=== PATIENT | female | born 2000 | race Caucasian/White ===

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

== ENCOUNTER 2018-11-23 11:36 | Emergency (ER) | payer OTHER ==
[~2018-11-23] VITALS: Ht 162.6 cm; Wt 47.0 kg
[2018-11-23 12:27] LABS: IMMATURE GRANULOCYTES 0.4 % (0.0-5.0); MEAN CELL VOLUME 88.6 fL CALC (80.0-100.0); MEAN CORPUSCULAR HGB 28.8 pG CALC (26.0-32.0); MEAN CORPUSCULAR HGB CONC 32.5 g/L CALC (32.0-36.0); NEUT# 5.67 thou/uL (2.00-7.15); RED BLOOD COUNT 4.9 mill/uL (4.20-5.60); RED CELL DISTRI WIDTH 12.7 % (11.5-15.5)
[2018-11-23 12:56] LABS: HEMATOCRIT 43.4 % (37.0-47.0); HEMOGLOBIN 14.1 g/dl (12.0-16.0)
[2018-11-23 12:57] LABS: ALBUMIN 4.4 g/dL (3.2-5.0); ALKALINE PHOSPHATASE 67 u/l (38-126); ANION GAP 9 (6-22 (CALC)); BILIRUBIN, TOTAL 0.3 mg/dL (0.0-1.4); BUN 7 mg/dL (7-17); BUN/CREATININE RATIO 10 (12-20 (CALC)); CARBON DIOXIDE 30 mmol/l (22-30); CHLORIDE 107 mmol/l (95-108); CREATININE 0.7 mg/dL (0.5-1.0); GFR > 60 ML/MIN (>=60 (CALC)); GFR FOR AFR.AMER. > 60 ML/MIN (>=60 (CALC)); LIPASE 100 u/l (23-300); POTASSIUM 4.2 mmol/l (3.5-5.1); SGOT/AST 26 u/l (14-36); SODIUM 142 mmol/l (137-146); TOTAL PROTEIN 7.2 g/dL (6.3-8.2)
--- NOTE | 2018-11-23 15:45 | NUR ---
IV INFILTRATION DURING CT INJECTION. PATIENT STATED THAT SHE FELT PAIN DURING FLUSHING OF IV BUT THERE WAS NO EVIDENCE OF INFILTRATION. DURING THE INJECTION OF CONTRAST THERE WAS NO RESISTANCE OR PRESSURE BACK UP. PATIENT STATED SHE FELT THE FLUSHING FEELING WHICH IS TYPICAL WITH THE INJECTION. I KEPT MY HAND ON THE PATIENT'S ARM ABOVE THE IV TO ASSESS AND ABOUT HALF WAY THROUGH I FELT HER ARM TIGHTEN AND GET FIRM. THE INJECTION WAS STOPPED. UMER SAENZ, THE PATIENT'S ER NURSE, WAS NOTIFIED.
[2018-11-23] MEDS ORDERED: CEPHALEXIN500 M1 PO (16:06)
[2018-11-23] MEDS ORDERED: BACITRACIN3.5 GM TOP (16:06)
[2018-11-23 16:23] VITALS: BP 141/82
== END 2018-11-23 16:47 | disposition home or self-care (01) | DRG 605 ==
LOC: ED 11:36
PROVIDERS: Family Medicine
DX: S80.212A Abrasion, left knee, initial encounter (principal); S92.425A Nondisplaced fracture of distal phalanx of left great toe, initial encounter for closed fracture; S90.415A Abrasion, left lesser toe(s), initial encounter; S50.811A Abrasion of right forearm, initial encounter; S40.211A Abrasion of right shoulder, initial encounter; F17.200 Nicotine dependence, unspecified, uncomplicated; V23.5XXA Motorcycle passenger injured in collision with car, pick-up truck or van in traffic accident, initial encounter; T80.89XA Other complications following infusion, transfusion and therapeutic injection, initial encounter; M79.89 Other specified soft tissue disorders; M79.602 Pain in left arm; Y84.8 Other medical procedures as the cause of abnormal reaction of the patient, or of later complication, without mention of misadventure at the time of the procedure
CPT/HCPCS: Q9967